=== PATIENT | female | born 1940 | race Caucasian/White ===

== ENCOUNTER 2020-07-05 18:29 | Emergency (ER) | payer MEDICARE ==
[~2020-07-05] VITALS: Ht 162.6 cm; Wt 56.8 kg
[2020-07-05 19:59] LABS: HEMATOCRIT 41.9 % (37.0-47.0); HEMOGLOBIN 13.4 g/dl (12.0-16.0); IMMATURE GRANULOCYTES 0.2 % (0.0-5.0); MEAN CELL VOLUME 89.5 fL CALC (80.0-100.0); MEAN CORPUSCULAR HGB 28.6 pG CALC (26.0-32.0); NEUT# 3.8 thou/uL (2.00-7.15); RED BLOOD COUNT 4.68 mill/uL (4.20-5.60)
[2020-07-05 20:04] LABS: ALBUMIN 4.1 g/dL (3.2-5.0); ALKALINE PHOSPHATASE 75 u/l (38-126); ANION GAP 9 (6-22 (CALC)); BILIRUBIN, TOTAL 0.4 mg/dL (0.0-1.4); BUN 17 mg/dL (8-23); BUN/CREATININE RATIO 28 (12-20 (CALC)); CARBON DIOXIDE 27 mmol/l (22-30); CHLORIDE 99 mmol/l (95-108); CREATININE 0.6 mg/dL (0.5-1.0); GFR > 60 ML/MIN (>=60 (CALC)); GFR FOR AFR.AMER. > 60 ML/MIN (>=60 (CALC)); POTASSIUM 4.3 mmol/l (3.5-5.1); SGOT/AST 51 u/l (9-36); SODIUM 131 mmol/l (137-146); TOTAL PROTEIN 6.8 g/dL (6.3-8.2)
[2020-07-05] MEDS ORDERED: LEVOTHYROXIN50 MCG PO (20:29)
[2020-07-05] MEDS ORDERED: DONEPEZIL5 MG PO (20:30)
[2020-07-05] MEDS ORDERED: PLAVIX75 MG PO (20:31)
[2020-07-05] MEDS ORDERED: GABAPENTIN100 MG PO (20:31)
[2020-07-05] MEDS ORDERED: ATORVASTATIN CA20 MG PO (20:32)
[2020-07-05 21:10] LABS: URINE BILIRUBIN - DIPSTICK NEGATIVE (NEGATIVE); URINE BLOOD DIPSTICK TRACE-LYSED (NEGATIVE); URINE COLOR YELLOW; URINE GLUCOSE - DIPSTICK >=1000 mg/dL (NEGATIVE); URINE KETONE NEGATIVE (NEGATIVE); URINE LEUK ESTERASE NEGATIVE (NEGATIVE); URINE NITRITE - DIPSTICK NEGATIVE (Negative); URINE PROTEIN - DIPSTICK NEGATIVE (NEG-TRACE); URINE UROBILINOGEN - DIPSTICK 0.2 E.U./dL (0.2)
[2020-07-05] MEDS ORDERED: METFORMIN HCL1000 M1 PO (21:27)
[2020-07-05 22:15] VITALS: BP 172/80
== END 2020-07-05 22:15 | disposition home or self-care (01) ==
LOC: ED 18:29
PROVIDERS: Family Medicine
DX: E11.65 Type 2 diabetes mellitus with hyperglycemia (principal); I10 Essential (primary) hypertension; F03.90 Unspecified dementia, unspecified severity, without behavioral disturbance, psychotic disturbance, mood disturbance, and anxiety